=== PATIENT | female | born 1935 | race Caucasian/White ===

== ENCOUNTER → 2016-12-07 | Outpatient (CLI) | payer MEDICARE, OTHER ==
[~2016-12-07] MED LIST: LEVO137T2 PO; SIMV20TA3 PO
== END | disposition home or self-care (01) ==
LOC: CFH 10:10
PROVIDERS: ATTEND Internal Medicine Cardiovascular Disease
DX: I08.3 Combined rheumatic disorders of mitral, aortic and tricuspid valves (principal); I37.1 Nonrheumatic pulmonary valve insufficiency; Q21.1 Atrial septal defect
CPT/HCPCS: 93306

== ENCOUNTER 2016-12-22 10:28 | Day surgery (SDC) | payer MEDICARE, OTHER ==
[2016-12-20 15:00] LABS: BLOOD UREA NITROGEN 25 mg/dL (7-18)
[2016-12-20 15:03] LABS: ASPARTATE AMINO TRANSFERASE 19 U/L (15-37)
[2016-12-20 15:17] VITALS: BP 133/76
[~2016-12-22] VITALS: Ht 175.3 cm; Wt 90.9 kg
[2016-12-22] MEDS ORDERED: TICAGRELOR 90 MG TABLET ONE (13:00)
[2016-12-22] MEDS ORDERED: FENTANYL PF 100 MCG/2ML ONE (13:00)
[2016-12-22] MEDS ORDERED: MIDAZOLAM 1 MG/ML, 5ML ONE (13:00)
[2016-12-22] MEDS ORDERED: NITROGLYCERIN 5 MG/ML, 10ML ONE (13:00)
[2016-12-22] MEDS ORDERED: VERAPAMIL 2.5 MG/ML, 2ML ONE (13:00)
[2016-12-22] MEDS ORDERED: HEPARIN 1,000 UNITS/ML, 10ML ONE (13:01)
[2016-12-22] MEDS ORDERED: LIDOCAINE 2%, 20ML ONE (13:01)
[2016-12-22] MEDS ORDERED: BIVALIRUDIN 250 MG ONE (13:01)
== END 2016-12-22 16:00 ==
LOC: CACL 10:28
PROVIDERS: ATTEND Internal Medicine Cardiovascular Disease
DX: I25.10 Atherosclerotic heart disease of native coronary artery without angina pectoris (principal); E78.5 Hyperlipidemia, unspecified
CPT/HCPCS: 36415; 71020; 80053; 85025; 85610; 85730; 93454; 99156; C1769; C1894; J1644; J2250; J3010; J3490; Q9967; J0583